=== PATIENT | female | born 1990 | race Caucasian/White ===

== ENCOUNTER 2017-01-12 06:49 | Emergency (ER) | payer MEDICAID ==
--- NOTE | 2017-01-12 07:46 | EDM.PDOC ---
ED HPI GENERAL MEDICAL PROBLEM - General Chief Complaint: Behavioral/Psych Stated Complaint: MENTAL HOLD Time Seen by Provider: 01/12/17 07:29 - History of Present Illness INITIAL COMMENTS - FREE TEXT/NARRATIVE: HISTORY AND PHYSICAL: History of present illness: The patient is a 26-year-old female who lives in a [facility] situation, which is not in a closed mcc, and presents with police after the staff there contacted them because the patient expressed desire to hurt herself and that she was feeling this way for a long time. Patient says she takes medication is compliant with that but she has not been following the rules of the mcc situation and went out last night and drank alcohol. She says that she also smokes cigarettes but does not do any drugs. She said that she was out last night and did not come home and hence she got in trouble for that and she is concerned that she is going to be kicked out of the [facility]cc. The patient is very vague about her depression and keeps saying that she has had feelings for quite some time and that these are not new and is very vague about her desire to hurt herself. When she got back to the [facility] early this morning she used her fingernail on her right hand to try to "cut her left wrist" because there was no other sharp objects that she had available. She did not attempt to hurt herself while she was out drinking last night or out with the other people that she was with. She is very vague here and somewhat evasive with my questioning and has little insight into her disease process or her current situation. She is unsure her wood shop teacher is and the police say that when they were called to bring her here they were given little information about the situation she is currently living with. She denies any medical complaints such as chest pain shortness of breath abdominal pain nausea vomiting diarrhea and so she gets regular periods. She has no neurosensory changes in her left wrist or hand and no complaints of pain at the area that she attempted to hurt herself Review of systems: As per history of present illness and below otherwise all systems reviewed and negative. Past medical history: As per history of present illness and as reviewed below otherwise noncontributory. Surgical history: As per history of present illness and as reviewed below otherwise noncontributory. Social history: No reported history of drug or alcohol abuse. Family history: As per history of present illness and as reviewed below otherwise noncontributory. Physical exam: General: Well-developed well-nourished overweight female who is nontoxic and speaking clearly and easily in the ED. It ascends been reviewed by me HEENT: Atraumatic, normocephalic, pupils reactive, negative for conjunctival pallor or scleral icterus, mucous membranes moist, throat clear, neck supple, nontender, trachea midline. Lungs: Clear to auscultation, breath sounds equal bilaterally, chest nontender. Heart: S1S2, regular, negative for clicks, rubs, or JVD. Abdomen: Soft, nondistended, nontender. NABS Negative for costovertebral tenderness. Skin: No evidence of any rashes lesions turgor is normal. The only abnormality is seen in the extremity exam please see below Genitourinary: Deferred. Rectal: Deferred. Extremities: Atraumatic except for a very faint superficial scratch seen on her left wrist without any bleeding skin separation swelling or erythema and no soft tissue swelling in the surround, distal hand and fingers and wrist motion is intact, negative for cords or calf pain. Neurovascular unremarkable. Neuro: Awake, alert, oriented. Cranial nerves II through XII unremarkable. Cerebellum unremarkable. Motor and sensory unremarkable throughout. Exam nonfocal. Diagnostics: CBC CMP EtOH and drug screen UA UCG TSH Therapeutics: Please note that it was found at that the patient does reside at [facility] Which is a crisis center affiliated with [facility]. I discussed with their on-call crisis person, Nanci, this case and she states that she is familiar with this particular patient and did try to discuss the situation with her this morning. According to her information the patient has been breaking rules and did go out drinking alcohol and according to her one of the strict rules of this crisis center is that the patient must remain sober and that because she did not adhere to that rule she will likely be asked to leave the center tomorrow. In light of that information it is clear that the patient's response and reaction this morning is to being told that information. I asked the patient directly why she didn't want to attempt to hurt herself last night when she was out of the bar and she was drinking and she had every opportunity and she had no response to that. The patient does not have any specific plan as to any attempts or activity today and merely responds with very vague answers as she has done throughout the course of her stay here. The patient does have a borderline personality per the structural iron worker and her knowledge of this patient and many of the responses and interaction I have had with the patient is consistent with that diagnosis. The patient is familiar with [facility]'s unit and she refers to it as IIIc and asks that I call psychiatrist to discuss her case to see if she can go there. She seems very concerned about what will happen tomorrow with respect to her residence at the crisis center and feels that this would be a good disposition for her. I told her that I would be happy to make that phone call psychiatrist but this time it did not feel that she needed acute inpatient therapy and according to Nanci she can go back to the crisis center and be seen by her counselor, Helena, tomorrow to discuss her feelings and future plans for her therapy program. [id number]: case was discussed with the psychiatrist at [facility], Dr. Rivas ; she does not feel that this merits inpatient likely with her borderline personality this is a reaction to being told that she would need to leave [place]. I have discussed this conversation with the patient and that she will be discharged back to the crisis center/[facility] and she is stable with that. I advised her that if there are any changes or issues that she can come back here Impression: Depression and borderline personality with history of same, recent alcohol use stable Definitive disposition and diagnosis as appropriate pending reevaluation and review of above. head Pain Score (Numeric/FACES): 7 - Related Data Allergies Allergy/AdvReac Type Severity Reaction Status Date / Time No Known Allergies Allergy Verified 01/12/17 07:05 Home Meds: Home Meds DULoxetine [Cymbalta] 0 mg PO BID 01/12/17 [History] Divalproex Sodium [Depakote] 1,000 mg PO BID 01/12/17 [History] traZODone 50 mg PO DAILY 01/12/17 [History] Past Medical History - Past Health History Medical/Surgical History: Denies Medical/Surgical History HEENT History: Reports: Impaired Vision Other HEENT History: wears glasses Neurological History: Reports: Seizure Psychiatric History: Reports: Depression Social & Family History - Family History Family Medical History: Noncontributory Neurological: Reports: Seizure - Tobacco Use Smoking Status *Q: Current Every Day Smoker Years of Tobacco use: 6 Packs/Tins Daily: 1 - Recreational Drug Use Recreational Drug Use: Yes Drug Use in Last 12 Months: No ED ROS GENERAL - Review of Systems Review Of Systems: ROS reveals no pertinent complaints other than HPI. ED EXAM, GENERAL - Physical Exam Exam: See Below (See dictation) Course - Vital Signs Last Recorded V/S: Last Vital Signs Temp 36.1 C 01/12/17 06:49 Pulse 80 01/12/17 06:49 Resp 18 01/12/17 06:49 BP 134/72 01/12/17 06:49 Pulse Ox - Orders/Labs/Meds Labs: Laboratory Tests 01/12/17 01/12/17 01/12/17 Range/Units 07:03 07:03 07:03 WBC (4.0-11.0) K/uL RBC (4.30-5.90) M/uL Hgb (12.0-16.0) g/dL Hct (36.0-46.0) % MCV (80.0-98.0) fL MCH (27.0-32.0) pg MCHC (31.0-37.0) g/dL RDW Std Deviation (28.0-62.0) fl RDW Coeff of Radha (11.0-15.0) % Plt Count (150-400) K/uL MPV (7.40-12.00) fL Neut % (Auto) (48.0-80.0) % Lymph % (Auto) (16.0-40.0) % [place] % (Auto) (0.0-15.0) % Eos % (Auto) (0.0-7.0) % Baso % (Auto) (0.0-1.5) % Neut # (Auto) (1.4-5.7) K/uL Lymph # (Auto) (0.6-2.4) K/uL [place] # (Auto) (0.0-0.8) K/uL Eos # (Auto) (0.0-0.7) K/uL Baso # (Auto) (0.0-0.1) K/uL Nucleated RBC % /100WBC Nucleated RBCs # K/uL Sodium (136-146) mmol/L Potassium (3.5-5.1) mmol/L Chloride (98-110) mmol/L Carbon Dioxide (21-31) mmol/L BUN (6.0-23.0) mg/dL Creatinine (0.6-1.5) mg/dL Est Cr Clr Drug Dosing Estimated GFR (MDRD) ml/min Glucose (60-110) mg/dL Calcium (8.8-10.8) mg/dL Total Bilirubin (0.1-1.5) mg/dL AST (5-40) IU/L ALT (8-54) IU/L Alkaline Phosphatase (40-150) Total Protein (6.0-8.0) g/dL Albumin (3.5-5.0) g/dL Globulin (2.0-3.5) g/dL Albumin/Globulin Ratio (1.3-2.8) TSH 3rd Generation (0.47-5.0) uIU/mL Urine Color YELLOW Urine Appearance CLEAR Urine pH 5.5 (5.0-8.0) Ur Specific [place] 1.025 (1.001-1.035) Urine Protein NEGATIVE (NEGATIVE) mg/dL Urine Glucose (UA) NEGATIVE (NEGATIVE) mg/dL Urine Ketones NEGATIVE (NEGATIVE) mg/dL Urine Occult Blood NEGATIVE (NEGATIVE) Urine Nitrite NEGATIVE (NEGATIVE) Urine Bilirubin NEGATIVE (NEGATIVE) Urine Urobilinogen 0.2 (<2.0) EU/dL Ur Leukocyte Esterase NEGATIVE (NEGATIVE) Urine RBC 0-2 (0-2/HPF) Urine WBC 0-2 (0-5/HPF) Ur Epithelial Cells FEW (NONE-FEW) Urine Bacteria FEW (NEGATIVE) Urine HCG, Qual NEGATIVE (NEGATIVE) Urine Opiates Screen NEGATIVE (NEGATIVE) Ur Oxycodone Screen NEGATIVE (NEGATIVE) Urine Methadone Screen NEGATIVE (NEGATIVE) Ur Barbiturates Screen NEGATIVE (NEGATIVE) Ur Phencyclidine Scrn NEGATIVE (NEGATIVE) Ur Amphetamine Screen NEGATIVE (NEGATIVE) U Methamphetamines Scrn NEGATIVE (NEGATIVE) U Benzodiazepines Scrn NEGATIVE (NEGATIVE) U Cocaine Metab Screen NEGATIVE (NEGATIVE) U Marijuana (THC) Screen NEGATIVE (NEGATIVE) Ethyl Alcohol mg/dL 01/12/17 01/12/17 Range/Units 07:49 07:49 WBC 13.69 H (4.0-11.0) K/uL RBC 4.48 (4.30-5.90) M/uL Hgb 14.2 (12.0-16.0) g/dL Hct 41.6 (36.0-46.0) % MCV 92.9 (80.0-98.0) fL MCH 31.7 (27.0-32.0) pg MCHC 34.1 (31.0-37.0) g/dL RDW Std Deviation 43.4 (28.0-62.0) fl RDW Coeff of Radha 13 (11.0-15.0) % Plt Count 291 (150-400) K/uL MPV 9.80 (7.40-12.00) fL Neut % (Auto) 56.0 (48.0-80.0) % Lymph % (Auto) 35.1 (16.0-40.0) % [place] % (Auto) 7.5 (0.0-15.0) % Eos % (Auto) 1.3 (0.0-7.0) % Baso % (Auto) 0.1 (0.0-1.5) % Neut # (Auto) 7.7 H (1.4-5.7) K/uL Lymph # (Auto) 4.8 H (0.6-2.4) K/uL [place] # (Auto) 1.0 H (0.0-0.8) K/uL Eos # (Auto) 0.2 (0.0-0.7) K/uL Baso # (Auto) 0.0 (0.0-0.1) K/uL Nucleated RBC % 0.0 /100WBC Nucleated RBCs # 0 K/uL Sodium 136 (136-146) mmol/L Potassium 4.1 (3.5-5.1) mmol/L Chloride 108 (98-110) mmol/L Carbon Dioxide 18 L (21-31) mmol/L BUN 10 (6.0-23.0) mg/dL Creatinine 0.6 (0.6-1.5) mg/dL Est Cr Clr Drug Dosing TNP Estimated GFR (MDRD) > 60.0 ml/min Glucose 84 (60-110) mg/dL Calcium 8.9 (8.8-10.8) mg/dL Total Bilirubin 0.3 (0.1-1.5) mg/dL AST 31 (5-40) IU/L ALT 53 (8-54) IU/L Alkaline Phosphatase 68 (40-150) Total Protein 6.7 (6.0-8.0) g/dL Albumin 3.8 (3.5-5.0) g/dL Globulin 2.9 (2.0-3.5) g/dL Albumin/Globulin Ratio 1.3 (1.3-2.8) TSH 3rd Generation 2.52 (0.47-5.0) uIU/mL Urine Color Urine Appearance Urine pH (5.0-8.0) Ur Specific [place] (1.001-1.035) Urine Protein (NEGATIVE) mg/dL Urine Glucose (UA) (NEGATIVE) mg/dL Urine Ketones (NEGATIVE) mg/dL Urine Occult Blood (NEGATIVE) Urine Nitrite (NEGATIVE) Urine Bilirubin (NEGATIVE) Urine Urobilinogen (<2.0) EU/dL Ur Leukocyte Esterase (NEGATIVE) Urine RBC (0-2/HPF) Urine WBC (0-5/HPF) Ur Epithelial Cells (NONE-FEW) Urine Bacteria (NEGATIVE) Urine HCG, Qual (NEGATIVE) Urine Opiates Screen (NEGATIVE) Ur Oxycodone Screen (NEGATIVE) Urine Methadone Screen (NEGATIVE) Ur Barbiturates Screen (NEGATIVE) Ur Phencyclidine Scrn (NEGATIVE) Ur Amphetamine Screen (NEGATIVE) U Methamphetamines Scrn (NEGATIVE) U Benzodiazepines Scrn (NEGATIVE) U Cocaine Metab Screen (NEGATIVE) U Marijuana (THC) Screen (NEGATIVE) Ethyl Alcohol < 10.0 mg/dL Departure - Departure Time of Disposition: 09:37 Disposition: Home, Self-Care 01 Condition: Good Clinical Impression: Borderline personality disorder, Depressive disorder - Discharge Information Referrals: PCP,None [Primary Care Provider] - Forms: ED Department Discharge Additional Instructions: The following information is given to patients seen in the emergency department who are being discharged to home. This information is to outline your options for follow-up care. We provide all patients seen in our emergency department with a follow-up referral. The need for follow-up, as well as the timing and circumstances, are variable depending upon the specifics of your emergency department visit. If you don't have a primary care physician on staff, we will provide you with a referral. We always advise you to contact your personal physician following an emergency department visit to inform them of the circumstance of the visit and for follow-up with them and/or the need for any referrals to a consulting specialist. The emergency department will also refer you to a specialist when appropriate. This referral assures that you have the opportunity for followup care with a specialist. All of these measure are taken in an effort to provide you with optimal care, which includes your followup. Under all circumstances we always encourage you to contact your private physician who remains a resource for coordinating your care. When calling for followup care, please make the office aware that this follow-up is from your recent emergency room visit. If for any reason you are refused follow-up, please contact the [facility] emergency department at and ask to speak to the emergency department charge nurse. [facility] Primary care- Internal Medicine and Family [address] [id number] You will be discharged with the police academy instructor who will bring you back to [facility]. If you have any further issues or concerns you are welcome to return to the ED and return as needed and as discussed. Please follow-up with her counselor tomorrow discuss
[2017-01-12 08:18] LABS: CHLORIDE,CL 108 mmol/L (98-110); SODIUM,NA 136 mmol/L (136-146)
[2017-01-12 09:49] VITALS: BP 141/78
== END 2017-01-12 09:46 | disposition home or self-care (01) ==
LOC: MW.ED 06:49
DX: F60.3 Borderline personality disorder (principal); F32.9 Major depressive disorder, single episode, unspecified; F17.210 Nicotine dependence, cigarettes, uncomplicated; Z79.899 Other long term (current) drug therapy
CPT/HCPCS: 36415; 80053; 80305; 81001; 81025; 84443; 85025; 99284; G0480; 99283